=== PATIENT | female | born 1985 | race African-American/Black ===

== ENCOUNTER 2019-12-01 18:04 | Emergency (ER) | payer SELFPAY ==
[~2019-12-01] VITALS: Ht 157.5 cm; Wt 64.0 kg
[2019-12-01 18:19] VITALS: BP 143/84
--- NOTE | 2019-12-01 20:13 | RAD ---
Exam: Left hand 3 views INDICATION: Left arm redness and swelling, no injury TECHNIQUE: Frontal, lateral and oblique views the left hand Comparisons: None FINDINGS: Bone mineralization is normal. No acute or healed fractures. Soft tissues are unremarkable. Joint spaces are well-maintained. IMPRESSION: No acute osseous abnormality. Electronically signed by: Tristen Carrasco MD (12/01/2019 8:11 PM) [id number]
--- NOTE | 2019-12-01 20:29 | PHYS DOC ---
Past Medical History Past Medical History: No Pertinent History Past Surgical History: No Surgical History Smoking Status: Never Smoker Alcohol Use: None General Adult EDM: Chief Complaint: FINGER INJURY HPI: HPI: Patient is a 34 year old AA female who presents to the emergency department with complaints of left thumb redness and swelling after playing Ean cart for several hours 2 days ago. Patient states she noticed the redness, warmth, and swelling yesterday. She reports that the pain is located between the PIP and the DIP of her left thumb. She denies any numbness, tingling, weakness, decreased range of motion, or injury. She currently rates pain a 10 out of 10 on the pain scale. Patient denies any alleviating factors states she has tried taking Tylenol and ibuprofen with no relief. Review of Systems: Review of Systems: Constitutional: Denies fever or chills. [] Musculoskeletal: See HPI Integument: See HPI Neurologic: Denies headache, focal weakness or sensory changes. [] Psychiatric: Denies depression or anxiety. [] Heart Score: Risk Factors: Risk Factors: DM, Current or recent (<one month) smoker, HTN, HLP, family history of CAD, obesity. Risk Scores: Score 0 - 3: 2.5% MACE over next 6 weeks - Discharge Home Score 4 - 6: 20.3% MACE over next 6 weeks - Admit for Clinical Observation Score 7 - 10: 72.7% MACE over next 6 weeks - Early Invasive Strategies Physical Exam: PE: Constitutional: Well developed, well nourished, no acute distress, non-toxic a ppearance. [] HENT: Normocephalic, atraumatic, bilateral external ears normal, oropharynx moist, no oral exudates, nose normal. [] Eyes: PERRLA, EOMI, conjunctiva normal, no discharge. [] Neck: Normal range of motion, no stridor. [] Cardiovascular:Heart rate regular rhythm Lungs & Thorax: Respirations even and unlabored, no retractions, no respiratory distress Skin: Warm, dry, erythema and 1+ edema noted to PIP and DIP of left thumb Extremities: Left thumb tenderness between the DIP and PIP, no obvious deformity, no cyanosis, no clubbing, ROM intact, 1+ edema. [] Neurologic: Alert and oriented X 3, normal motor function, normal sensory function, no focal deficits noted. [] Psychologic: Affect normal, judgement normal, mood normal. [] Current Patient Data: Vital Signs: Vital Signs Date Time Temp Pulse Resp B/P (MAP) Pulse Ox O2 Delivery O2 Flow Rate FiO2 12/01/19 18:19 98.9 114 16 143/84 (103) 98 Room Air 98.9 EKG: EKG: [] Radiology/Procedures: Radiology/Procedures: PROCEDURE: HAND LEFT 3V Exam: Left hand 3 views INDICATION: Left arm redness and swelling, no injury TECHNIQUE: Frontal, lateral and oblique views the left hand Comparisons: None FINDINGS: Bone mineralization is normal. No acute or healed fractures. Soft tissues are unremarkable. Joint spaces are well-maintained. IMPRESSION: No acute osseous abnormality.[] Course & Med Decision Making: Course & Med Decision Making Pertinent Labs and Imaging studies reviewed. (See chart for details) [] Dragon Disclaimer: Dragon Disclaimer: This electronic medical record was generated, in whole or in part, using a voice recognition dictation system. Departure Departure Impression: Primary Impression: Acute gout of left hand Qualified Codes: M10.9 - Gout, unspecified Disposition: HOME, SELF-CARE Condition: STABLE Referrals: NO PCP (PCP) Patient Instructions: Gout, [id number] Additional Instructions: Fill prescription(s) and use as directed. Follow-up with your primary care doctor if symptoms persist, return to the ER if your symptoms worsen. Scripts Prednisone (PREDNISONE) 20 Mg Tablet 1 TAB PO UD for 8 Days, #10 TAB 2 tabs by mouth days 1,2 then 1.5 tabs by mouth days 3,4 then 1 tab by mouth days 5,6 then 0.5 tab by mouth day 7,8 Prov: MUNIR NGUYEN APRN 12/01/19 MUNIR NGUYEN APRN Dec 01, 2019 20:29
[2019-12-01] MEDS ORDERED: PRED20TA PO (20:45)
[2019-12-01] MEDS ORDERED: predniSONE 10 MG TABLET PO ONE (20:45)
== END 2019-12-01 20:54 | disposition home or self-care (01) ==
LOC: ER 18:04
DX: M10.9 Gout, unspecified (principal); M79.642 Pain in left hand; M79.645 Pain in left finger(s); R60.0 Localized edema; L53.9 Erythematous condition, unspecified
CPT/HCPCS: 73130; 99283; J7512

== ENCOUNTER 2020-01-17 17:32 | Emergency (ER) | payer SELFPAY ==
[~2020-01-17] VITALS: Ht 165.1 cm; Wt 58.3 kg
[~2020-01-17 17:32] MED LIST: PRED20TA PO
[2020-01-17 17:55] VITALS: BP 140/85
[2020-01-17] MEDS ORDERED: CHLO15MO2 SWSP (18:21)
[2020-01-17] MEDS ORDERED: PENI500T PO (18:21)
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
== END 2020-01-17 18:34 | disposition home or self-care (01) ==
LOC: ER 17:32
DX: K05.01 Acute gingivitis, non-plaque induced (principal); K04.7 Periapical abscess without sinus; K08.89 Other specified disorders of teeth and supporting structures
CPT/HCPCS: 99283